=== PATIENT | male | born 1990 | race African-American/Black ===

== ENCOUNTER 2017-02-07 16:18 | Emergency (ER) | payer SELFPAY ==
[~2017-02-07] VITALS: Ht 185.4 cm; Wt 78.9 kg
[2017-02-07 17:10] VITALS: BP 126/87
[2017-02-07] MEDS ORDERED: HYDROCODONE/APAP 5/325MG 1 EACH TABLET ONE (19:48)
[2017-02-07] MEDS ORDERED: IBUPROFEN 600 MG TABLET PO ONE ×2 (19:49→20:00)
[2017-02-07] MEDS ORDERED: HYDROCODONE/APAP 5/325MG 1 EACH TABLET PO ONE (20:00)
== END 2017-02-07 20:03 | disposition home or self-care (01) ==
LOC: ER 16:20
DX: M25.561 Pain in right knee (principal); Z98.890 Other specified postprocedural states
CPT/HCPCS: 73564; 99284; A4606; Z7610